=== PATIENT | female | born 1980 | race Caucasian/White ===

== ENCOUNTER → 2016-11-08 | Outpatient (CLI) | payer OTHER ==
[~2016-11-08] MED LIST: ACET500C OR; MOTR200T4 PO
[2016-11-08 13:36] LABS: ALBUMIN 3.4 GM/DL (3.2-5.2); ALBUMIN/GLOBULIN RATIO 0.87 (1.00-1.93); ALKALINE PHOSPHATASE 110 U/L (45-117); ALT/SGPT 74 U/L (12-78); ANION GAP 5 MEQ/L (8-16); AST/SGOT 52 U/L (15-37); BILIRUBIN,TOTAL 0.2 MG/DL (0.2-1.0); BLOOD UREA NITROGEN 14 MG/DL (7-18); CARBON DIOXIDE LEVEL 26 MEQ/L (21-32); CHLORIDE LEVEL 104 MEQ/L (98-107); CHOLESTEROL LEVEL 198 MG/DL (<200); CREATININE FOR GFR 0.69 MG/DL (0.55-1.02); FREE T4 0.98 NG/DL (0.76-1.46); GLOMERULAR FILTRATION RATE > 60.0 (>60); GLUCOSE, FASTING 86 MG/DL (70-105); POTASSIUM SERUM 4.5 MEQ/L (3.5-5.1); SODIUM LEVEL 135 MEQ/L (136-145); TOTAL PROTEIN 7.3 GM/DL (6.4-8.2); TRIGLYCERIDES LEVEL 99 MG/DL (<150)
== END ==
LOC: M LAB 12:03
PROVIDERS: ATTEND Nurse Practitioner Family
DX: F41.1 Generalized anxiety disorder (principal); R11.2 Nausea with vomiting, unspecified; Z13.220 Encounter for screening for lipoid disorders

== ENCOUNTER 2023-07-31 18:04 | Emergency (ER) | payer OTHER ==
[~2023-07-31] VITALS: Ht 165.1 cm; Wt 88.6 kg
[2023-07-31 18:11] VITALS: BP 141/72; TEMP 97.4; O2SAT 95
[2023-07-31] MEDS ORDERED: VENTAER INH (18:21)
[2023-07-31] MEDS ORDERED: FAMO40TA3 PO (18:24)
[2023-07-31] MEDS ORDERED: NOXI1TAB PO (18:24)
[2023-07-31] MEDS ORDERED: DEXA0.5E2 PO (18:24)
[2023-07-31] MEDS ORDERED: CYCL5TAB PO (18:24)
[2023-07-31] MEDS ORDERED: INCR1INH INH (18:24)
[2023-07-31] MEDS ORDERED: METH10CO3 PO (18:24)
[2023-07-31] MEDS ORDERED: NICO21DI37 TOP (18:27)
[2023-07-31] MEDS ORDERED: OXYC-1 PO (18:27)
[2023-07-31] MEDS ORDERED: TRAZ-252 PO (18:27)
[2023-07-31] MEDS ORDERED: ZOLO50TA PO (18:27)
== END 2023-07-31 22:46 | disposition left against medical advice (07) ==
LOC: M ED 18:04 → EDBD 18:04 → M ED 22:46
DX: Z53.21 Procedure and treatment not carried out due to patient leaving prior to being seen by health care provider (principal)

== ENCOUNTER → 2023-08-13 | Outpatient (CLI) | payer OTHER ==
[~2023-08-13] MED LIST changes: +CYCL5TAB PO; +DEXA0.5E2 PO; +DEXA4TA PO; +FAMO40TA3 PO; +INCR1INH INH; +METH10CO3 PO; +NICO21DI37 TOP; +NOXI1TAB PO; +OXYC-1 PO; +TRAZ-252 PO; +VENTAER INH; +ZOLO50TA PO
== END ==
LOC: M ONCR 14:00
PROVIDERS: ATTEND General Practice
DX: C79.51 Secondary malignant neoplasm of bone (principal); C34.11 Malignant neoplasm of upper lobe, right bronchus or lung; Z79.891 Long term (current) use of opiate analgesic; Z79.899 Other long term (current) drug therapy; Z71.2 Person consulting for explanation of examination or test findings; Z80.8 Family history of malignant neoplasm of other organs or systems; Z87.891 Personal history of nicotine dependence; Z91.013 Allergy to seafood

== ENCOUNTER → 2023-08-13 | Outpatient (CLI) | payer OTHER | LOC: M RAD 15:17 | PROVIDERS: ATTEND General Practice | DX: C79.51 Secondary malignant neoplasm of bone (principal) ==

== ENCOUNTER → 2023-08-19 | Outpatient (CLI) | payer OTHER ==
[~2023-08-19] VITALS: Ht 165.1 cm; Wt 90.3 kg
[~2023-08-19] MED LIST changes: +BEDSIDE COMMODE; +LACT20EL PO; +OXYC10TA12 PO; +OXYC30TA72 PO; +VITMTA PO
[2023-08-19 08:40] VITALS: BP 123/89; O2SAT 82
[2023-08-19 08:56] VITALS: O2SAT 90
== END ==
LOC: M PAL 08:29
PROVIDERS: ATTEND Nurse Practitioner Adult Health
DX: C79.51 Secondary malignant neoplasm of bone (principal); C34.11 Malignant neoplasm of upper lobe, right bronchus or lung; G89.3 Neoplasm related pain (acute) (chronic); J44.9 Chronic obstructive pulmonary disease, unspecified; K59.00 Constipation, unspecified; R06.01 Orthopnea; R09.02 Hypoxemia; R22.2 Localized swelling, mass and lump, trunk; Z51.5 Encounter for palliative care; Z56.0 Unemployment, unspecified; Z79.52 Long term (current) use of systemic steroids; Z79.891 Long term (current) use of opiate analgesic; Z79.899 Other long term (current) drug therapy; Z80.1 Family history of malignant neoplasm of trachea, bronchus and lung; Z87.891 Personal history of nicotine dependence; Z91.030 Bee allergy status; Z99.89 Dependence on other enabling machines and devices

== ENCOUNTER 2023-08-20 12:56 | Outpatient (RCR) | payer OTHER | END 2023-09-02 | PROVIDERS: ATTEND General Practice | DX: Z51.0 Encounter for antineoplastic radiation therapy (principal); C79.51 Secondary malignant neoplasm of bone ==